=== PATIENT | male | born 2000 | race Caucasian/White ===

== ENCOUNTER 2023-11-30 17:34 | Emergency (ER) | payer OTHER, SELFPAY ==
--- NOTE | ~2023-11-30 | XR_ITS ---
EXAMINATION: XR hand LT min 3V DATE: 11/30/2023 18:00 INDICATION: Pain near the second third metacarpophalangeal joints 5 days post dog bite. TECHNIQUE: 1. Posteroanterior, oblique and lateral views of the left hand were obtained. COMPARISON: None. FINDINGS: Alignment is normal. No fracture. Joint spaces are normal. Soft tissues are unremarkable. No soft tis kristen gas or radiopaque foreign bodies. IMPRESSION: 1. Negative left hand radiographs. Reviewed, dictated and finalized at location A.
--- NOTE | 2023-11-30 17:47 | ED.WOUNDLAC ---
HPI - Wound/Laceration General Chief Complaint: Wound/Laceration Stated Complaint: Dog Bite Time Seen by Provider: 11/30/23 17:47 Source: patient Mode of arrival: ambulatory Limitations: no limitations History of Present Illness HPI narrative: Fermín is a 23-year-old male patient presenting to the clinic today with complaints a wound/dog bite to the left hand, left proximal posterior thigh, and to the right lateral side. He states that this occurred 5 days ago and he went to urgent care. He was given a tetanus shot at that time and put on Augmentin for 10 days. He is requesting an x-ray of his left hand today and a recheck of the wounds. Related Data Home Medications Medication Instructions Recorded Confirmed amoxicillin 875 mg-potassium 1 tablet DIRECTED 11/30/23 11/30/23 clavulanate 125 mg tablet Allergies Allergy/AdvReac Type Severity Reaction Status Date / Time ibuprofen AdvReac Intermediate Other Verified 11/30/23 17:46 Review of Systems Review of Systems: Pertinent positives per HPI. Patient denies any fever, chills, rash, headache, visual changes, dizziness, cough, runny nose, sore throat, shortness of breath, chest pain, palpitations, nausea, vomiting, diarrhea, constipation, abdominal pain, or any urinary issues. PMFSH Comments At the time of my signature, I reviewed and agree with the nursing past medical, surgical, social, and family history. There is no relevant family history pertinent to the patient complaint. Exam Narrative: General: Well-developed, well nourished, in no apparent distress Head: Normocephalic, atraumatic. Cardio: Regular rate and rhythm, s1 and s2 normal, no murmur appreciated. Resp: Clear to auscultation bilaterally, no rhonchi, rales, wheezing or rubs. Musculoskeletal: No deformity, non-tender to palpation, grossly normal range of motion, muscle strength strong and equal, peripheral pulse strong, no edema, no cyanosis, normal gait and station Integumentary: Marcelline, warm, and dry, scabbed over wounds to the right lateral side, left proximal posterior thigh, and right dorsal hand-mild redness around the wounds Course Course Emergency Course: Portions of this record may have been created with voice recognition software. Level of Care: Express Care Visit Vital Signs Vital signs: Vital Signs Temperature 37.2 C 11/30/23 17:48 Pulse Rate 88 11/30/23 17:48 Respiratory Rate 18 11/30/23 17:48 Blood Pressure 129/67 11/30/23 17:48 Pulse Oximetry 100 11/30/23 17:48 Oxygen Delivery Room Air 11/30/23 17:48 Temperature 37.2 C 11/30/23 17:48 Pulse Rate 88 11/30/23 17:48 Respiratory Rate 18 11/30/23 17:48 Blood Pressure 129/67 11/30/23 17:48 Pulse Oximetry 100 11/30/23 17:48 Oxygen Delivery Room Air 11/30/23 17:48 Vital signs reviewed MDM - Wound/Laceration MDM Narrative Medical decision making narrative: At the time of visit patient is resting comfortably on the exam table. Patient appears to be nontoxic. Diagnostics: X-ray of the left hand is negative for any sign of fracture or malalignment Plan: I suspect patient has acute wounds from a dog bite, hand contusion with left hand pain. Will send in mupirocin cream for the wounds as they do have some mild redness around them without induration. Will have the patient continue Augmentin. Supportive measures were discussed with the patient and they voiced understanding discharge instructions and agrees to treatment plan. Return precautions reviewed Differential Diagnosis Differential diagnosis: Likely laceration and other (Wound infection, dog bite, hand fracture) Imaging Data Radiologist's impression: ITS Impressions Hand X-Ray 11/30/23 18:05 IMPRESSION: 1. Negative left hand radiographs. Discharge Plan Discharge Clinical Impression: Encounter for wound re-check, Left hand pain Dog bite Qualifiers: Encounter type: subsequent encounter Mauro
[2023-11-30 17:48] VITALS: BP 129/67; PULSE 88; RESP 18; TEMP 37.2; O2SAT 100
== END 2023-11-30 18:16 | disposition home or self-care (01) ==
PROVIDERS: Emergency Provider Nurse Practitioner Family
DX: S61.452A Open bite of left hand, initial encounter (principal); S71.152A Open bite, left thigh, initial encounter; S31.159A Open bite of abdominal wall, unspecified quadrant without penetration into peritoneal cavity, initial encounter; W54.0XXA Bitten by dog, initial encounter; S60.222A Contusion of left hand, initial encounter
CPT/HCPCS: 73130; 99213; G0463